=== PATIENT | male | born 1970 | race Caucasian/White ===

== ENCOUNTER 2022-01-08 16:12 | Inpatient (IN) ==
[2022-01-08] MEDS: 0.9 % Sodium Chloride 1,000 ML IVC SCH ×2 (16:58→16:59)
[2022-01-08 17:05] LABS: Bacteria,Urine Few per hpf (None-Few); Bilirubin,Urine Negative (Negative); Blood,Urine Large (Negative); Clarity,Urine Clear (Clear); Color,Urine Yellow (Yellow); Glucose,Urine (UA) 30 mg/dL (Normal); Ketones,Urine 20 mg/dL (Negative); Leukocyte Esterase,Urine Negative (Negative); Mucus,Urine Few per lpf (None-Few); Nitrite,Urine Negative (Negative); Protein,Urine 100 mg/dL (Neg-Trace); RBC,Urine 0-3 per hpf (0-3); Specific Gravity,Urine 1.028 (1.010-1.025); Squamous Epithelial Cell,Urine Few per hpf (None-Few); Urobilinogen,Urine Normal (Normal); WBC,Urine 0-3 per hpf (0-3)
[2022-01-08 17:10] LABS: Basophils % 0.1 %; Hematocrit 49.2 % (37.5-50.1); Hemoglobin 17.5 g/dL (12.9-16.9); Immature Granulocytes % 0.5 % (0-4); Lymphocytes % 6.8 %; Mean Corpuscular HGB Conc 35.6 g/dL (31.6-35.5); Mean Corpuscular Hemoglobin 33.7 pg (28.0-33.3); Mean Corpuscular Volume 94.6 fL (83.0-100.0); Mean Platelet Volume 11.3 fL (9.4-12.4); Monocytes # 0.7 K/mcL (0.0-1.3); Monocytes % 4.5 %; Neutrophils # 13.2 K/mcL (1.6-8.9); Platelet Count 208 K/mcL (140-400); Red Cell Distribution Width 12.5 % (11.5-14.5); Segmented Neutrophils % 88.1 %
[2022-01-08 17:15] LABS: Alanine Aminotransferase 89 Units/L (7-52); Albumin 4.3 g/dL (3.5-5.7); Albumin/Globulin Ratio 1.5 (1.1-2.2); Alkaline Phosphatase 49 Units/L (34-104); Aspartate Amino Transferase 164 Units/L (13-39); BUN/Creatinine Ratio 7 (6-26); Bilirubin,Direct 0.1 mg/dL (0.0-0.2); Bilirubin,Indirect 0.3 mg/dL (0.0-1.0); Bilirubin,Total 0.4 mg/dL (0.3-1.0); Blood Urea Nitrogen 11 mg/dL (6-20); Carbon Dioxide 18 mEq/L (23-29); Chloride 100 mEq/L (98-107); Ethanol < 10 mg/dL (Less than 10); Globulin 2.8 g/dL (2.4-3.5); Glucose 165 mg/dL (70-105); Osmolality,Calculated 287 (280-300); Potassium 4.1 mEq/L (3.5-5.1); Sodium 137 mEq/L (136-145); Total Protein 7.1 g/dL (6.4-8.9); Troponin I < 0.03 ng/mL (< 0.04); eGFR For African Americans > 60 (> 60); eGFR For Non-African Americans 50 (> 60)
[2022-01-08 17:19] LABS: Amphetamine Screen,Urine Negative ng/mL (Cutoff=1000); Barbiturate Screen,Urine Negative ng/mL (Cutoff=200); Benzodiazepines Screen,Urine Negative ng/mL (Cutoff=200); Cannabinoid Screen,Urine Positive ng/mL (Cutoff = 50); Cocaine Screen,Urine Negative ng/mL (Cutoff= 300); Opiate Screen,Urine Negative ng/mL (Cutoff=300); Phencyclidine Screen,Urine Negative ng/mL (Cutoff=25)
[2022-01-08 19:05] LABS: Acetaminophen 13 mcg/mL (10-20); Ethanol < 10 mg/dL (Less than 10); Salicylate 44.7 mg/dL (15.0-30.0)
[2022-01-08 19:29] LABS: VBG HCO3 20 mEq/L (21-27); VBG PCO2 29 mmHg (41-51); VBG PH 7.45 pH Units (7.32-7.42); VBG PO2 151 mmHg (25-50)
[2022-01-08] MEDS ORDERED: Sodium Bicarbonate 150 MEQ in D5% in Water 1,000 ML IVC SCH ×2 (19:30→23:30)
[2022-01-08] MEDS ORDERED: *HR* Dextrose 50 % in Water (Syg) 50 ML SYRINGE IVP ONE (19:57)
[2022-01-08] MEDS ORDERED: Melatonin 3 MG TABLET PO PRN (20:14)
[2022-01-08] MEDS ORDERED: Naloxone 0.4 MG/ML INJ IVP PRN (20:14)
[2022-01-08] MEDS ORDERED: Ondansetron 4 MG/2 ML VIAL IVP PRN (20:14)
[2022-01-08] MEDS ORDERED: Ringers Solution, Lactated 1,000 ML IVC SCH (20:15)
[2022-01-08] MEDS ORDERED: ACETYLCYSTEINE IVC ONE ×2 (20:28→21:30)
[2022-01-08] MEDS ORDERED: WATER IVC ONE ×2 (20:28→21:30)
[2022-01-08] MEDS ORDERED: D5 IVC ONE ×2 (20:28→21:30)
[2022-01-08] MEDS ORDERED: Dextrose Gel 15 GM/37.5 ML TUBE PO PRN ×2 (20:29)
[2022-01-08] MEDS ORDERED: D5% in Water 1,000 ML IVC PRN (20:29)
[2022-01-08] MEDS ORDERED: *HR* Dextrose 50 % in Water (Syg) 50 ML SYRINGE IVP PRN (20:29)
[2022-01-08] MEDS ORDERED: Ringers Solution, Lactated 1,000 ML IVC ONE (20:44)
[2022-01-08] MEDS: *HR* LORazepam 2 MG/ML VIAL IVP ONE (21:00)
[2022-01-08] MEDS ORDERED: Thiamine (B-1) 100 MG in 0.9 % Sodium Chloride 50 ML IVPB STA (21:19)
[2022-01-08] MEDS ORDERED: Saline Nasal Spray 44 ML BOTTLE NS PRN (21:59)
[2022-01-08] MEDS ORDERED: Saliva Stimulant 44.3ml BOTTLE PO PRN (21:59)
[2022-01-08 22:42] LABS: INR 1.5; Prothrombin Time 17.1 Seconds (9.4-12.1)
[2022-01-08 22:45] LABS: Activated Partial Thrombo Time 25.8 Seconds (26.0-36.0)
[2022-01-08 22:59] LABS: Procalcitonin 0.61 ng/mL (0.00-0.15)
[2022-01-08 23:15] LABS: Folate 7.6 ng/mL (3.0-16.0)
[2022-01-08] MEDS: Ipratropium/Albuterol Neb 3 ML IH SCH (23:25)
[2022-01-08] MEDS ORDERED: Potassium Chloride 40 MEQ, Sodium Bicarbonate 150 MEQ in D5% in Water 1,000 ML IVC SCH (23:30)
[2022-01-08 23:35] LABS: ABG Base Excess 2 mEq/L (-2 to 3); ABG HCO3 27 mEq/L (21-27); ABG Oxygen Saturation 100 % (95-98); ABG PCO2 43 mmHg (35-45); ABG PH 7.41 pH Units (7.32-7.45); ABG PO2 207 mmHg (85-104); ABG TCO2 28 mEq/L (20-26)
[2022-01-08 23:37] LABS: Acetaminophen < 10 mcg/mL (10-20); Alanine Aminotransferase 92 Units/L (7-52); Albumin 3.1 g/dL (3.5-5.7); Albumin/Globulin Ratio 1.6 (1.1-2.2); Alkaline Phosphatase 37 Units/L (34-104); Aspartate Amino Transferase 254 Units/L (13-39); Bilirubin,Direct 0.1 mg/dL (0.0-0.2); Bilirubin,Indirect 0.2 mg/dL (0.0-1.0); Bilirubin,Total 0.3 mg/dL (0.3-1.0); Salicylate 41.8 mg/dL (15.0-30.0); Total Protein 5.1 g/dL (6.4-8.9)
[2022-01-08 23:43] LABS: C-Reactive Protein < 5 mg/L (Less than 10)
[2022-01-08 23:57] LABS: Creatine Kinase > 20000 Units/L (30-223)
[2022-01-09] MEDS: Potassium Chloride 40 MEQ, Sodium Bicarbonate 150 MEQ in D5% in Water 1,000 ML IVC SCH ×2 (00:28→09:26)
[2022-01-09] MEDS: Piperacillin/Tazobactam 3.375 GM in 0.9 % Sodium Chloride Mini Bag 100 ML IVPB SCH ×4 (01:03→23:20)
[2022-01-09] MEDS: Pantoprazole 40 MG VIAL IVP SCH ×2 (01:04→07:08)
[2022-01-09 01:22] LABS: VBG HCO3 27 mEq/L (21-27); VBG PCO2 41 mmHg (41-51); VBG PH 7.42 pH Units (7.32-7.42); VBG PO2 77 mmHg (25-50)
[2022-01-09] MEDS ORDERED: ACETYLCYSTEINE IVC ONE ×2 (01:30→20:21)
[2022-01-09] MEDS ORDERED: WATER IVC ONE ×2 (01:30→20:21)
[2022-01-09] MEDS ORDERED: D5 IVC ONE ×2 (01:30→20:21)
[2022-01-09 02:17] LABS: Adenovirus Not Detected (Not Detect); Coronavirus 229E Not Detected (Not Detect); Coronavirus HKU1 Not Detected (Not Detect); Coronavirus NL63 Not Detected (Not Detect); Coronavirus OC43 Not Detected (Not Detect); SARS-CoV-2 Not Detected (Not Detect)
[2022-01-09 02:18] LABS: Bordetella Pertussis Not Detected (Not Detect); Chlamydophila pneumoniae Not Detected (Not Detect); Human Metapneumovirus Not Detected (Not Detect); Human Rhinovirus/Enterovirus Not Detected (Not Detect); Influenza A Subtype 2009 H1 Not Detected (Not Detect); Influenza B Not Detected (Not Detect); Mycoplasma pneumoniae Not Detected (Not Detect); Parainfluenza Virus 1 Not Detected (Not Detect); Parainfluenza Virus 2 Not Detected (Not Detect); Parainfluenza Virus 3 Not Detected (Not Detect); Parainfluenza Virus 4 Not Detected (Not Detect); Respiratory Syncytial Virus Not Detected (Not Detect)
[2022-01-09] MEDS: Ipratropium/Albuterol Neb 3 ML IH SCH (03:45)
[2022-01-09 03:52] LABS: Bilirubin,Urine Negative (Negative); Blood,Urine Large (Negative); Clarity,Urine Turbid (Clear); Color,Urine Light-Orange (Yellow); Glucose,Urine (UA) 200 mg/dL (Normal); Ketones,Urine Trace mg/dL (Negative); Leukocyte Esterase,Urine Moderate (Negative); Nitrite,Urine Negative (Negative); PH,Urine 6.5 pH Units (5.0-8.0); Protein,Urine >=300 mg/dL (Neg-Trace); Specific Gravity,Urine 1.022 (1.010-1.025); Urobilinogen,Urine Normal (Normal)
[2022-01-09 03:55] LABS: Alanine Aminotransferase 106 Units/L (7-52); Albumin 3.3 g/dL (3.5-5.7); Albumin/Globulin Ratio 1.5 (1.1-2.2); Alkaline Phosphatase 38 Units/L (34-104); Aspartate Amino Transferase 261 Units/L (13-39); BUN/Creatinine Ratio 8 (6-26); Bilirubin,Total 0.3 mg/dL (0.3-1.0); Blood Urea Nitrogen 18 mg/dL (6-20); Calcium 7.1 mg/dL (8.6-10.3); Carbon Dioxide 29 mEq/L (23-29); Chloride 100 mEq/L (98-107); Creatine Kinase > 20000 Units/L (30-223); Globulin 2.2 g/dL (2.4-3.5); Glucose 187 mg/dL (70-105); Osmolality,Calculated 295 (280-300); Potassium 3.9 mEq/L (3.5-5.1); Sodium 139 mEq/L (136-145); Total Protein 5.5 g/dL (6.4-8.9); eGFR For African Americans 38 (> 60); eGFR For Non-African Americans 31 (> 60)
[2022-01-09 04:16] LABS: Creatinine,Urine 143 mg/dL; Microalbumin,Urine > 1350 mg/L; Protein/Creatinine Ratio,Urine 4.33 mg/mg (0.00-0.20); Sodium, Urine 58.7 mEq/L
[2022-01-09 04:23] LABS: VBG HCO3 28 mEq/L (21-27); VBG PCO2 42 mmHg (41-51); VBG PH 7.44 pH Units (7.32-7.42); VBG PO2 49 mmHg (25-50)
[2022-01-09 04:29] LABS: Basophils % 0.2 %; Hematocrit 43.2 % (37.5-50.1); Immature Granulocytes % 0.4 % (0-4); Lymphocytes # 1.7 K/mcL (0.6-4.6); Lymphocytes % 13.5 %; Mean Corpuscular HGB Conc 35.2 g/dL (31.6-35.5); Mean Corpuscular Hemoglobin 33.3 pg (28.0-33.3); Mean Corpuscular Volume 94.7 fL (83.0-100.0); Mean Platelet Volume 11.1 fL (9.4-12.4); Monocytes # 1.3 K/mcL (0.0-1.3); Monocytes % 9.8 %; Neutrophils # 9.8 K/mcL (1.6-8.9); Platelet Count 150 K/mcL (140-400); Red Blood Count 4.56 M/mcL (4.19-5.50); Red Cell Distribution Width 12.8 % (11.5-14.5); Segmented Neutrophils % 76.1 %; White Blood Count 12.9 K/mcL (4.3-11.1)
[2022-01-09 04:32] LABS: Hemoglobin 15.2 g/dL (12.9-16.9)
[2022-01-09 04:43] LABS: Albumin 3.1 g/dL (3.5-5.7); Albumin/Globulin Ratio 1.4 (1.1-2.2); Bilirubin,Total 0.3 mg/dL (0.3-1.0); Calcium 6.8 mg/dL (8.6-10.3); Globulin 2.2 g/dL (2.4-3.5); Potassium 4.5 mEq/L (3.5-5.1); Total Protein 5.3 g/dL (6.4-8.9)
[2022-01-09 04:43] LABS: Magnesium 1.8 mg/dL (1.6-2.6); Phosphorous 3.9 mg/dL (2.7-4.5)
[2022-01-09 04:44] LABS: INR 1.7
[2022-01-09 04:46] LABS: Activated Partial Thrombo Time 28.2 Seconds (26.0-36.0)
[2022-01-09] MEDS: Calcium Gluconate 1gm/50mL 1 GM/50 ML BAG IVPB SCH ×2 (05:28→06:26)
[2022-01-09] MEDS: *HR* Heparin 5,000 UNIT/ML VIAL SQ SCH ×2 (05:28→17:06)
[2022-01-09 06:30] LABS: VBG HCO3 25 mEq/L (21-27); VBG PCO2 33 mmHg (41-51); VBG PH 7.49 pH Units (7.32-7.42); VBG PO2 93 mmHg (25-50)
[2022-01-09 06:46] LABS: Albumin/Globulin Ratio 1.6 (1.1-2.2); Bilirubin,Total 0.3 mg/dL (0.3-1.0); Calcium 6.9 mg/dL (8.6-10.3); Globulin 1.9 g/dL (2.4-3.5); Potassium 3.7 mEq/L (3.5-5.1); Total Protein 4.9 g/dL (6.4-8.9)
[2022-01-09] MEDS: 0.9 % Sodium Chloride 1,000 ML IVC SCH ×6 (06:52→07:02)
[2022-01-09 07:34] LABS: VBG HCO3 26 mEq/L (21-27); VBG PCO2 30 mmHg (41-51); VBG PH 7.54 pH Units (7.32-7.42); VBG PO2 128 mmHg (25-50)
[2022-01-09] MEDS ORDERED: Ipratropium/Albuterol Neb 3 ML IH PRN (07:46)
[2022-01-09] MEDS: Nicotine 21 MG PATCH.TD24 TD SCH (07:55)
[2022-01-09 08:18] LABS: Albumin 3.1 g/dL (3.5-5.7); Albumin/Globulin Ratio 1.6 (1.1-2.2); Bilirubin,Total 0.4 mg/dL (0.3-1.0); Calcium 7.4 mg/dL (8.6-10.3); Potassium 4.3 mEq/L (3.5-5.1); Total Protein 5.1 g/dL (6.4-8.9)
[2022-01-09] MEDS ORDERED: Chlorhexidine Rinse 15 ML MOUTHWASH MM SCH (09:00)
[2022-01-09] MEDS ORDERED: Artificial Tears SOLN 15 ML BOTTLE BOTH EYES SCH (09:00)
[2022-01-09] MEDS ORDERED: *HR* LORazepam 2 MG/ML VIAL IVP ONE (10:10)
[2022-01-09 10:13] LABS: Albumin 3.1 g/dL (3.5-5.7); Albumin/Globulin Ratio 1.6 (1.1-2.2); Bilirubin,Total 0.3 mg/dL (0.3-1.0); Calcium 7.4 mg/dL (8.6-10.3); Globulin 1.9 g/dL (2.4-3.5); Potassium 3.5 mEq/L (3.5-5.1); Salicylate 36.8 mg/dL (15.0-30.0)
[2022-01-09] MEDS ORDERED: *HR* LORazepam 2 MG/ML VIAL ONE ×2 (10:13→13:50)
[2022-01-09] MEDS ORDERED: Sodium Bicarbonate 150 MEQ in D5% in Water 1,000 ML IVC SCH (10:15)
[2022-01-09] MEDS: Dexmedetomidine HCl 400 MCG/100 ML MLS IVC SCH ×2 (10:18→13:32)
[2022-01-09] MEDS: niCARdipine 20 MG/200 ML MLS IVC SCH ×5 (10:33→23:17)
[2022-01-09] MEDS ORDERED: *HR* Heparin 10,000 UNIT/10 ML VIAL IV PRN (11:06)
[2022-01-09] MEDS ORDERED: 0.9 % Sodium Chloride 250 ML IVC PRN (11:06)
[2022-01-09] MEDS: Sodium Bicarbonate 100 MEQ in D5% in Water 1,000 ML IVC SCH ×3 (11:15→22:03)
[2022-01-09] MEDS ORDERED: 0.9 % Sodium Chloride 2,000 ML PRIME SCH (11:15)
[2022-01-09 11:19] LABS: Hepatitis B Surface Antibody < 3.10 mIU/mL
[2022-01-09 11:29] LABS: Hepatitis B Surface Antigen Nonreactive (Nonreactive)
[2022-01-09 12:02] LABS: Mixed Venous Blood pCO2 36 mmHg (44-46); Mixed Venous Blood pH 7.47 pH Units (7.34-7.36); Mixed Venous Blood pO2 112 mmHg (35-45)
[2022-01-09 12:08] LABS: Albumin 2.8 g/dL (3.5-5.7); Albumin/Globulin Ratio 1.4 (1.1-2.2); Bilirubin,Total 0.3 mg/dL (0.3-1.0); Calcium 7.1 mg/dL (8.6-10.3); Potassium 3.5 mEq/L (3.5-5.1); Salicylate 37.8 mg/dL (15.0-30.0); Total Protein 4.8 g/dL (6.4-8.9)
[2022-01-09 12:37] LABS: Complement C3 60 mg/dL (87-200)
[2022-01-09] MEDS ORDERED: *HR* Propofol 200 MG/20 ML VIAL IVP ONE (12:47)
[2022-01-09] MEDS ORDERED: Lidocaine -MPF 2% 5 ML VIAL SQ ONE (12:47)
[2022-01-09] MEDS ORDERED: *HR* Rocuronium Bromide 50 MG/5 ML VIAL IVP ONE (12:47)
[2022-01-09] MEDS ORDERED: *HR* Midazolam HCl 2 MG/2 ML VIAL IVP ONE ×2 (12:47→14:20)
[2022-01-09 13:59] LABS: VBG HCO3 29 mEq/L (21-27); VBG PCO2 45 mmHg (41-51); VBG PH 7.42 pH Units (7.32-7.42); VBG PO2 111 mmHg (25-50)
[2022-01-09 14:10] LABS: Albumin 2.9 g/dL (3.5-5.7); Albumin/Globulin Ratio 1.5 (1.1-2.2); Bilirubin,Total 0.3 mg/dL (0.3-1.0); Calcium 7.1 mg/dL (8.6-10.3); Globulin 1.9 g/dL (2.4-3.5); Potassium 3.8 mEq/L (3.5-5.1); Total Protein 4.8 g/dL (6.4-8.9)
[2022-01-09 14:15] LABS: VBG HCO3 26 mEq/L (21-27); VBG PCO2 33 mmHg (41-51); VBG PH 7.51 pH Units (7.32-7.42); VBG PO2 235 mmHg (25-50)
[2022-01-09] MEDS ORDERED: Artificial Tears SOLN 15 ML BOTTLE BOTH EYES PRN (14:18)
[2022-01-09] MEDS: *HR* LORazepam 2 MG/ML VIAL IVP ONE (14:43)
[2022-01-09] MEDS: FentaNYL (PF) 1,000 MCG/100 ML IV.SOLN IVC SCH (14:57)
[2022-01-09 15:25] LABS: ABG Base Excess 4 mEq/L (-2 to 3); ABG HCO3 32 mEq/L (21-27); ABG Oxygen Saturation 95 % (95-98); ABG PCO2 58 mmHg (35-45); ABG PH 7.35 pH Units (7.32-7.45); ABG PO2 81 mmHg (85-104); ABG TCO2 33 mEq/L (20-26); Blood Gas Modality ASSIST CONTROL; Blood Gas VT 480 cc
[2022-01-09] MEDS: Artificial Tears SOLN 15 ML BOTTLE BOTH EYES SCH ×3 (15:34→23:19)
[2022-01-09 16:18] LABS: VBG HCO3 29 mEq/L (21-27); VBG PCO2 46 mmHg (41-51); VBG PO2 102 mmHg (25-50)
[2022-01-09] MEDS ORDERED: Albumin 25% 25gram/100mL 25 GM/100 ML IV.SOLN IVPB ONE (16:37)
[2022-01-09 16:57] LABS: Albumin 2.8 g/dL (3.5-5.7); Albumin/Globulin Ratio 1.6 (1.1-2.2); Bilirubin,Total 0.3 mg/dL (0.3-1.0); Calcium 6.5 mg/dL (8.6-10.3); Globulin 1.8 g/dL (2.4-3.5); Salicylate 31.4 mg/dL (15.0-30.0); Total Protein 4.6 g/dL (6.4-8.9)
[2022-01-09 18:17] LABS: Albumin/Globulin Ratio 1.6 (1.1-2.2); Bilirubin,Total 0.3 mg/dL (0.3-1.0); Calcium 7.7 mg/dL (8.6-10.3); Globulin 1.9 g/dL (2.4-3.5); Salicylate 25.5 mg/dL (15.0-30.0); Total Protein 4.9 g/dL (6.4-8.9)
[2022-01-09] MEDS: Budesonide/Formoterol 160/4.5 1 PUFF INH IH SCH (20:17)
[2022-01-09] MEDS ORDERED: 0.9 % Sodium Chloride 500 ML IVC ONE (20:25)
[2022-01-09] MEDS: Chlorhexidine Rinse 15 ML MOUTHWASH MM SCH (20:42)
[2022-01-09 20:53] LABS: VBG HCO3 30 mEq/L (21-27); VBG PCO2 47 mmHg (41-51); VBG PH 7.42 pH Units (7.32-7.42); VBG PO2 68 mmHg (25-50)
[2022-01-09 21:51] LABS: Salicylate 17.6 mg/dL (15.0-30.0)
[2022-01-09 23:03] LABS: Albumin 2.7 g/dL (3.5-5.7); Albumin/Globulin Ratio 1.8 (1.1-2.2); Bilirubin,Total 0.3 mg/dL (0.3-1.0); Calcium 7.4 mg/dL (8.6-10.3); Globulin 1.5 g/dL (2.4-3.5); Potassium 3.4 mEq/L (3.5-5.1); Salicylate 18.6 mg/dL (15.0-30.0); Total Protein 4.2 g/dL (6.4-8.9)
[2022-01-09 23:37] LABS: Amorphous Sediment,Urine Few per hpf (None-Few); Bacteria,Urine Few per hpf (None-Few); Bilirubin,Urine Negative (Negative); Blood,Urine Large (Negative); Clarity,Urine Turbid (Clear); Color,Urine Yellow (Yellow); Glucose,Urine (UA) 100 mg/dL (Normal); Granular Casts,Urine Few per lpf (None Seen); Ketones,Urine Trace mg/dL (Negative); Leukocyte Esterase,Urine Small (Negative); Mucus,Urine Few per lpf (None-Few); Nitrite,Urine Negative (Negative); Protein,Urine 100 mg/dL (Neg-Trace); RBC,Urine 30-50 per hpf (0-3); Specific Gravity,Urine 1.021 (1.010-1.025); Squamous Epithelial Cell,Urine Few per hpf (None-Few); Transitional Epi Cells,Urine Few per hpf (None-Few); Urobilinogen,Urine Normal (Normal); WBC,Urine 30-50 per hpf (0-3)
[2022-01-10] MEDS: niCARdipine 20 MG/200 ML MLS IVC SCH ×4 (02:13→15:33)
[2022-01-10] MEDS: Artificial Tears SOLN 15 ML BOTTLE BOTH EYES SCH ×5 (03:24→19:12)
[2022-01-10] MEDS: Sodium Bicarbonate 100 MEQ in D5% in Water 1,000 ML IVC SCH (04:16)
[2022-01-10 04:22] LABS: ABG Base Excess 7 mEq/L (-2 to 3); ABG HCO3 31 mEq/L (21-27); ABG Oxygen Saturation 97 % (95-98); ABG PCO2 41 mmHg (35-45); ABG PH 7.49 pH Units (7.32-7.45); ABG PO2 83 mmHg (85-104); ABG TCO2 32 mEq/L (20-26); Blood Gas VT 480 cc
[2022-01-10 04:46] LABS: Basophils % 0.3 %; Eosinophils % 0.3 %; Hematocrit 33.7 % (37.5-50.1); Immature Granulocytes % 0.3 % (0-4); Lymphocytes % 19.6 %; Mean Corpuscular HGB Conc 35.3 g/dL (31.6-35.5); Mean Corpuscular Hemoglobin 33.7 pg (28.0-33.3); Mean Corpuscular Volume 95.5 fL (83.0-100.0); Mean Platelet Volume 11.2 fL (9.4-12.4); Monocytes # 0.8 K/mcL (0.0-1.3); Monocytes % 7.7 %; Neutrophils # 7.2 K/mcL (1.6-8.9); Platelet Count 108 K/mcL (140-400); Red Blood Count 3.53 M/mcL (4.19-5.50); Segmented Neutrophils % 71.8 %
[2022-01-10 04:52] LABS: Hemoglobin 11.9 g/dL (12.9-16.9)
[2022-01-10] MEDS: *HR* Heparin 5,000 UNIT/ML VIAL SQ SCH ×2 (05:06→17:06)
[2022-01-10 05:36] LABS: Albumin 2.7 g/dL (3.5-5.7); Albumin/Globulin Ratio 1.7 (1.1-2.2); Bilirubin,Direct 0.1 mg/dL (0.0-0.2); Bilirubin,Indirect 0.2 mg/dL (0.0-1.0); Bilirubin,Total 0.3 mg/dL (0.3-1.0); Calcium 7.4 mg/dL (8.6-10.3); Globulin 1.6 g/dL (2.4-3.5); Potassium 3.4 mEq/L (3.5-5.1); Total Protein 4.3 g/dL (6.4-8.9)
[2022-01-10] MEDS: Budesonide/Formoterol 160/4.5 1 PUFF INH IH SCH ×3 (07:38→20:35)
[2022-01-10] MEDS: Piperacillin/Tazobactam 3.375 GM in 0.9 % Sodium Chloride Mini Bag 100 ML IVPB SCH ×2 (07:45→20:18)
[2022-01-10] MEDS: Pantoprazole 40 MG VIAL IVP SCH (07:45)
[2022-01-10] MEDS: FentaNYL (PF) 1,000 MCG/100 ML IV.SOLN IVC SCH (07:45)
[2022-01-10] MEDS: Chlorhexidine Rinse 15 ML MOUTHWASH MM SCH ×2 (07:45→19:12)
[2022-01-10] MEDS: Nicotine 21 MG PATCH.TD24 TD SCH (07:45)
[2022-01-10] MEDS ORDERED: Piperacillin/Tazobactam 3.375 GM in 0.9 % Sodium Chloride Mini Bag 100 ML IVPB SCH (08:30)
[2022-01-10 09:47] LABS: Albumin 2.7 g/dL (3.5-5.7); Albumin/Globulin Ratio 1.7 (1.1-2.2); Bilirubin,Direct 0.1 mg/dL (0.0-0.2); Bilirubin,Indirect 0.2 mg/dL (0.0-1.0); Bilirubin,Total 0.3 mg/dL (0.3-1.0); Globulin 1.6 g/dL (2.4-3.5); Total Protein 4.3 g/dL (6.4-8.9)
[2022-01-10] MEDS: 0.9 % Sodium Chloride 1,000 ML IVC SCH (10:38)
[2022-01-10 17:25] LABS: Potassium 3.2 mEq/L (3.5-5.1)
[2022-01-11] MEDS: Artificial Tears SOLN 15 ML BOTTLE BOTH EYES SCH ×3 (00:03→07:21)
[2022-01-11 03:27] LABS: Basophils % 0.1 %; Eosinophils # 0.1 K/mcL (0.0-0.6); Eosinophils % 0.6 %; Hematocrit 33.7 % (37.5-50.1); Hemoglobin 11.6 g/dL (12.9-16.9); Immature Granulocytes % 0.5 % (0-4); Lymphocytes # 1.1 K/mcL (0.6-4.6); Lymphocytes % 13.8 %; Mean Corpuscular HGB Conc 34.4 g/dL (31.6-35.5); Mean Corpuscular Hemoglobin 33.1 pg (28.0-33.3); Mean Corpuscular Volume 96.3 fL (83.0-100.0); Mean Platelet Volume 11.3 fL (9.4-12.4); Monocytes # 0.9 K/mcL (0.0-1.3); Monocytes % 10.3 %; Neutrophils # 6.2 K/mcL (1.6-8.9); Platelet Count 115 K/mcL (140-400); Red Cell Distribution Width 12.7 % (11.5-14.5); Segmented Neutrophils % 74.7 %; White Blood Count 8.3 K/mcL (4.3-11.1)
[2022-01-11 04:06] LABS: Albumin 2.7 g/dL (3.5-5.7); Albumin/Globulin Ratio 1.6 (1.1-2.2); Bilirubin,Direct 0.2 mg/dL (0.0-0.2); Bilirubin,Indirect 0.2 mg/dL (0.0-1.0); Bilirubin,Total 0.4 mg/dL (0.3-1.0); Calcium 7.5 mg/dL (8.6-10.3); Globulin 1.7 g/dL (2.4-3.5); Potassium 4.2 mEq/L (3.5-5.1); Total Protein 4.4 g/dL (6.4-8.9)
[2022-01-11] MEDS: *HR* Heparin 5,000 UNIT/ML VIAL SQ SCH ×2 (06:00→18:04)
[2022-01-11] MEDS: niCARdipine 20 MG/200 ML MLS IVC SCH ×3 (07:10→09:43)
[2022-01-11] MEDS: 0.9 % Sodium Chloride 1,000 ML IVC SCH (07:10)
[2022-01-11] MEDS: FentaNYL (PF) 1,000 MCG/100 ML IV.SOLN IVC SCH (07:10)
[2022-01-11] MEDS: Piperacillin/Tazobactam 3.375 GM in 0.9 % Sodium Chloride Mini Bag 100 ML IVPB SCH ×2 (07:19→20:09)
[2022-01-11] MEDS: Pantoprazole 40 MG VIAL IVP SCH (07:20)
[2022-01-11] MEDS: Chlorhexidine Rinse 15 ML MOUTHWASH MM SCH (07:20)
[2022-01-11] MEDS: Nicotine 21 MG PATCH.TD24 TD SCH (07:21)
[2022-01-11] MEDS: Dexmedetomidine HCl 400 MCG/100 ML MLS IVC SCH (07:22)
[2022-01-11] MEDS: Budesonide/Formoterol 160/4.5 1 PUFF INH IH SCH ×2 (07:40→20:13)
[2022-01-11] MEDS ORDERED: 0.9 % Sodium Chloride 250 ML IVC PRN (09:03)
[2022-01-11] MEDS ORDERED: *HR* Heparin 10,000 UNIT/10 ML VIAL IV PRN ×2 (09:03→10:09)
[2022-01-11] MEDS ORDERED: 0.9 % Sodium Chloride 2,000 ML PRIME SCH ×2 (09:15→10:09)
[2022-01-11] MEDS ORDERED: Ondansetron 4 MG/2 ML VIAL IVP PRN (10:09)
[2022-01-11] MEDS ORDERED: Melatonin 3 MG TABLET PO PRN (10:09)
[2022-01-11] MEDS ORDERED: Saline Nasal Spray 44 ML BOTTLE NS PRN (10:09)
[2022-01-11] MEDS ORDERED: Saliva Stimulant 44.3ml BOTTLE PO PRN (10:09)
[2022-01-11] MEDS ORDERED: D5% in Water 1,000 ML IVC PRN (10:09)
[2022-01-11] MEDS ORDERED: *HR* Dextrose 50 % in Water (Syg) 50 ML SYRINGE IVP PRN (10:09)
[2022-01-11] MEDS ORDERED: Naloxone 0.4 MG/ML INJ IVP PRN (10:09)
[2022-01-11] MEDS ORDERED: niCARdipine 20 MG/200 ML MLS IVC SCH (10:09)
[2022-01-11] MEDS ORDERED: Dextrose Gel 15 GM/37.5 ML TUBE PO PRN ×2 (10:09)
[2022-01-11] MEDS ORDERED: Ipratropium/Albuterol Neb 3 ML IH PRN (10:09)
[2022-01-11] MEDS: Sodium Bicarbonate 100 MEQ in D5% in Water 1,000 ML IVC SCH (19:30)
[2022-01-11] MEDS ORDERED: Chlorhexidine Rinse 15 ML MOUTHWASH MM SCH (21:00)
[2022-01-12] MEDS: *HR* Heparin 5,000 UNIT/ML VIAL SQ SCH ×2 (05:24→18:33)
[2022-01-12 07:02] LABS: Albumin 2.8 g/dL (3.5-5.7); Albumin/Globulin Ratio 1.4 (1.1-2.2); Bilirubin,Direct 0.2 mg/dL (0.0-0.2); Bilirubin,Indirect 0.4 mg/dL (0.0-1.0); Bilirubin,Total 0.6 mg/dL (0.3-1.0); Calcium 8.1 mg/dL (8.6-10.3); Potassium 4.5 mEq/L (3.5-5.1); Total Protein 4.8 g/dL (6.4-8.9)
[2022-01-12] MEDS: Budesonide/Formoterol 160/4.5 1 PUFF INH IH SCH ×2 (07:19→19:58)
[2022-01-12] MEDS ORDERED: 0.9 % Sodium Chloride 250 ML IVC PRN (08:05)
[2022-01-12] MEDS ORDERED: *HR* Heparin 10,000 UNIT/10 ML VIAL IV PRN (08:05)
[2022-01-12] MEDS: Piperacillin/Tazobactam 3.375 GM in 0.9 % Sodium Chloride Mini Bag 100 ML IVPB SCH ×2 (08:05→20:49)
[2022-01-12] MEDS: Nicotine 21 MG PATCH.TD24 TD SCH (08:05)
[2022-01-12] MEDS: Doxycycline 100 MG CAPSULE PO SCH ×2 (08:44→20:47)
[2022-01-12 12:02] LABS: ANA IgG by ELISA NONE DETECTED (None Detected)
[2022-01-12 14:05] LABS: Basophils % 0.2 %; Eosinophils # 0.1 K/mcL (0.0-0.6); Eosinophils % 1.6 %; Hematocrit 32.8 % (37.5-50.1); Immature Granulocytes % 0.3 % (0-4); Lymphocytes # 0.9 K/mcL (0.6-4.6); Lymphocytes % 13.8 %; Mean Corpuscular HGB Conc 33.5 g/dL (31.6-35.5); Mean Corpuscular Hemoglobin 32.3 pg (28.0-33.3); Mean Corpuscular Volume 96.2 fL (83.0-100.0); Mean Platelet Volume 10.3 fL (9.4-12.4); Monocytes # 0.6 K/mcL (0.0-1.3); Monocytes % 9.8 %; Neutrophils # 4.6 K/mcL (1.6-8.9); Platelet Count 136 K/mcL (140-400); Red Blood Count 3.41 M/mcL (4.19-5.50); Red Cell Distribution Width 12.7 % (11.5-14.5); Segmented Neutrophils % 74.3 %; White Blood Count 6.2 K/mcL (4.3-11.1)
[2022-01-13 04:27] LABS: Basophils % 0.1 %; Eosinophils # 0.2 K/mcL (0.0-0.6); Eosinophils % 2.4 %; Hematocrit 31.8 % (37.5-50.1); Hemoglobin 10.7 g/dL (12.9-16.9); Immature Granulocytes % 0.3 % (0-4); Lymphocytes # 1.2 K/mcL (0.6-4.6); Lymphocytes % 16.4 %; Mean Corpuscular HGB Conc 33.6 g/dL (31.6-35.5); Mean Corpuscular Hemoglobin 32.3 pg (28.0-33.3); Mean Corpuscular Volume 96.1 fL (83.0-100.0); Mean Platelet Volume 10.4 fL (9.4-12.4); Monocytes # 0.9 K/mcL (0.0-1.3); Monocytes % 12.4 %; Neutrophils # 4.8 K/mcL (1.6-8.9); Platelet Count 147 K/mcL (140-400); Red Blood Count 3.31 M/mcL (4.19-5.50); Red Cell Distribution Width 12.6 % (11.5-14.5); Segmented Neutrophils % 68.4 %; White Blood Count 7.1 K/mcL (4.3-11.1)
[2022-01-13 05:19] LABS: Albumin 2.8 g/dL (3.5-5.7); Albumin/Globulin Ratio 1.3 (1.1-2.2); Bilirubin,Total 0.9 mg/dL (0.3-1.0); Calcium 8.3 mg/dL (8.6-10.3); Globulin 2.1 g/dL (2.4-3.5); Potassium 4.3 mEq/L (3.5-5.1); Total Protein 4.9 g/dL (6.4-8.9)
[2022-01-13] MEDS: *HR* Heparin 5,000 UNIT/ML VIAL SQ SCH ×2 (05:34→16:28)
[2022-01-13] MEDS: Budesonide/Formoterol 160/4.5 1 PUFF INH IH SCH ×2 (07:59→21:37)
[2022-01-13] MEDS ORDERED: 0.9 % Sodium Chloride 250 ML IVC PRN (08:37)
[2022-01-13] MEDS ORDERED: *HR* Heparin 10,000 UNIT/10 ML VIAL IV PRN (08:37)
[2022-01-13] MEDS: Nicotine 21 MG PATCH.TD24 TD SCH (08:43)
[2022-01-13] MEDS: Piperacillin/Tazobactam 3.375 GM in 0.9 % Sodium Chloride Mini Bag 100 ML IVPB SCH ×2 (08:43→21:00)
[2022-01-13] MEDS: Doxycycline 100 MG CAPSULE PO SCH ×2 (08:43→20:54)
[2022-01-14 03:54] LABS: Basophils % 0.2 %; Eosinophils # 0.2 K/mcL (0.0-0.6); Eosinophils % 2.4 %; Hematocrit 31.6 % (37.5-50.1); Hemoglobin 10.8 g/dL (12.9-16.9); Immature Granulocytes % 0.5 % (0-4); Lymphocytes # 1.2 K/mcL (0.6-4.6); Lymphocytes % 12.7 %; Mean Corpuscular HGB Conc 34.2 g/dL (31.6-35.5); Mean Corpuscular Hemoglobin 32.7 pg (28.0-33.3); Mean Corpuscular Volume 95.8 fL (83.0-100.0); Monocytes # 1.1 K/mcL (0.0-1.3); Monocytes % 11.6 %; Platelet Count 167 K/mcL (140-400); Red Cell Distribution Width 12.4 % (11.5-14.5); Segmented Neutrophils % 72.6 %; White Blood Count 9.6 K/mcL (4.3-11.1)
[2022-01-14 04:26] LABS: Albumin 2.6 g/dL (3.5-5.7); Albumin/Globulin Ratio 1.2 (1.1-2.2); Calcium 8.2 mg/dL (8.6-10.3); Globulin 2.2 g/dL (2.4-3.5); Total Protein 4.8 g/dL (6.4-8.9)
[2022-01-14] MEDS: *HR* Heparin 5,000 UNIT/ML VIAL SQ SCH ×2 (05:35→16:04)
[2022-01-14] MEDS: Budesonide/Formoterol 160/4.5 1 PUFF INH IH SCH ×2 (07:07→19:58)
[2022-01-14] MEDS: Doxycycline 100 MG CAPSULE PO SCH ×2 (09:24→20:15)
[2022-01-14] MEDS: Nicotine 21 MG PATCH.TD24 TD SCH (09:25)
[2022-01-14 14:36] LABS: ANCA IFA Titer <1:20 (<1:20)
[2022-01-15] MEDS: *HR* Heparin 5,000 UNIT/ML VIAL SQ SCH ×2 (05:01→19:42)
[2022-01-15] MEDS: Doxycycline 100 MG CAPSULE PO SCH ×2 (08:02→20:33)
[2022-01-15] MEDS: Nicotine 21 MG PATCH.TD24 TD SCH (08:03)
[2022-01-15] MEDS: Budesonide/Formoterol 160/4.5 1 PUFF INH IH SCH ×2 (08:10→20:03)
[2022-01-15 08:14] LABS: Hematocrit 36.5 % (37.5-50.1); Hemoglobin 12.2 g/dL (12.9-16.9); Mean Corpuscular HGB Conc 33.4 g/dL (31.6-35.5); Mean Corpuscular Hemoglobin 32.5 pg (28.0-33.3); Mean Corpuscular Volume 97.3 fL (83.0-100.0); Platelet Count 216 K/mcL (140-400); Red Blood Count 3.75 M/mcL (4.19-5.50); Red Cell Distribution Width 12.8 % (11.5-14.5); White Blood Count 11.2 K/mcL (4.3-11.1)
[2022-01-15 08:22] LABS: Albumin/Globulin Ratio 1.3 (1.1-2.2); Bilirubin,Total 1.1 mg/dL (0.3-1.0); Calcium 7.4 mg/dL (8.6-10.3); Globulin 2.3 g/dL (2.4-3.5); Potassium 4.3 mEq/L (3.5-5.1); Total Protein 5.3 g/dL (6.4-8.9)
[2022-01-15 08:54] LABS: Eosinophils # 0.3 K/mcL (0.0-0.6); Lymphocytes # 2.7 K/mcL (0.6-4.6); Monocytes # 0.6 K/mcL (0.0-1.3); Neutrophils # 7.6 K/mcL (1.6-8.9)
[2022-01-15 08:55] LABS: Platelet Estimate Normal (Normal)
[2022-01-15 09:41] LABS: ANCA IFA Pattern NONE DETECTED (None Detected); Serine Protease-3 Antibody 0 AU/mL (0-19)
[2022-01-16 01:11] LABS: Basophils % 0.3 %; Eosinophils # 0.3 K/mcL (0.0-0.6); Eosinophils % 3.1 %; Hematocrit 33.4 % (37.5-50.1); Hemoglobin 11.2 g/dL (12.9-16.9); Immature Granulocytes % 0.8 % (0-4); Lymphocytes # 2.2 K/mcL (0.6-4.6); Lymphocytes % 20.4 %; Mean Corpuscular HGB Conc 33.5 g/dL (31.6-35.5); Mean Corpuscular Hemoglobin 32.4 pg (28.0-33.3); Mean Corpuscular Volume 96.5 fL (83.0-100.0); Mean Platelet Volume 10.1 fL (9.4-12.4); Monocytes # 1.3 K/mcL (0.0-1.3); Monocytes % 11.8 %; Neutrophils # 6.8 K/mcL (1.6-8.9); Platelet Count 209 K/mcL (140-400); Red Blood Count 3.46 M/mcL (4.19-5.50); Red Cell Distribution Width 12.8 % (11.5-14.5); Segmented Neutrophils % 63.6 %; White Blood Count 10.7 K/mcL (4.3-11.1)
[2022-01-16 01:31] LABS: Albumin 2.9 g/dL (3.5-5.7); Albumin/Globulin Ratio 1.2 (1.1-2.2); Bilirubin,Total 1.3 mg/dL (0.3-1.0); Calcium 8.5 mg/dL (8.6-10.3); Globulin 2.5 g/dL (2.4-3.5); Potassium 4.5 mEq/L (3.5-5.1); Total Protein 5.4 g/dL (6.4-8.9)
[2022-01-16] MEDS: *HR* Heparin 5,000 UNIT/ML VIAL SQ SCH ×2 (06:11→17:07)
[2022-01-16] MEDS: Budesonide/Formoterol 160/4.5 1 PUFF INH IH SCH ×2 (07:34→20:27)
[2022-01-16] MEDS: Doxycycline 100 MG CAPSULE PO SCH ×2 (08:22→20:24)
[2022-01-16] MEDS: Nicotine 21 MG PATCH.TD24 TD SCH (08:22)
[2022-01-17] MEDS: *HR* Heparin 5,000 UNIT/ML VIAL SQ SCH ×2 (06:06→17:06)
[2022-01-17 06:34] LABS: Albumin 3.1 g/dL (3.5-5.7); Albumin/Globulin Ratio 1.3 (1.1-2.2); Bilirubin,Total 1.3 mg/dL (0.3-1.0); Calcium 8.4 mg/dL (8.6-10.3); Globulin 2.4 g/dL (2.4-3.5); Potassium 4.9 mEq/L (3.5-5.1); Total Protein 5.5 g/dL (6.4-8.9)
[2022-01-17] MEDS: Budesonide/Formoterol 160/4.5 1 PUFF INH IH SCH ×2 (07:45→19:30)
[2022-01-17] MEDS: Nicotine 21 MG PATCH.TD24 TD SCH (08:57)
[2022-01-17] MEDS: Doxycycline 100 MG CAPSULE PO SCH ×2 (08:57→21:06)
[2022-01-18] MEDS: *HR* Heparin 5,000 UNIT/ML VIAL SQ SCH ×2 (05:34→17:33)
[2022-01-18 06:36] LABS: Basophils % 0.3 %; Eosinophils # 0.4 K/mcL (0.0-0.6); Eosinophils % 3.2 %; Hematocrit 37.1 % (37.5-50.1); Hemoglobin 12.3 g/dL (12.9-16.9); Immature Granulocytes % 0.6 % (0-4); Lymphocytes # 2.4 K/mcL (0.6-4.6); Lymphocytes % 18.6 %; Mean Corpuscular HGB Conc 33.2 g/dL (31.6-35.5); Mean Corpuscular Hemoglobin 32.5 pg (28.0-33.3); Mean Corpuscular Volume 97.9 fL (83.0-100.0); Mean Platelet Volume 10.3 fL (9.4-12.4); Monocytes # 1.2 K/mcL (0.0-1.3); Monocytes % 9.6 %; Neutrophils # 8.7 K/mcL (1.6-8.9); Platelet Count 245 K/mcL (140-400); Red Blood Count 3.79 M/mcL (4.19-5.50); Red Cell Distribution Width 13.2 % (11.5-14.5); Segmented Neutrophils % 67.7 %; White Blood Count 12.8 K/mcL (4.3-11.1)
[2022-01-18 06:55] LABS: Albumin 3.6 g/dL (3.5-5.7); Albumin/Globulin Ratio 1.3 (1.1-2.2); Bilirubin,Total 1.4 mg/dL (0.3-1.0); Calcium 8.9 mg/dL (8.6-10.3); Globulin 2.7 g/dL (2.4-3.5); Potassium 5.2 mEq/L (3.5-5.1); Total Protein 6.3 g/dL (6.4-8.9)
[2022-01-18] MEDS: Budesonide/Formoterol 160/4.5 1 PUFF INH IH SCH ×2 (07:50→19:33)
[2022-01-18] MEDS: Nicotine 21 MG PATCH.TD24 TD SCH (09:31)
[2022-01-18] MEDS: Doxycycline 100 MG CAPSULE PO SCH ×2 (09:31→19:55)
[2022-01-19] MEDS: *HR* Heparin 5,000 UNIT/ML VIAL SQ SCH ×2 (05:17→15:18)
[2022-01-19] MEDS: Nicotine 21 MG PATCH.TD24 TD SCH (07:16)
[2022-01-19] MEDS: Doxycycline 100 MG CAPSULE PO SCH ×2 (07:23→21:38)
[2022-01-19 09:46] LABS: Calcium 9.5 mg/dL (8.6-10.3); Potassium 5.6 mEq/L (3.5-5.1)
[2022-01-19] MEDS: Budesonide/Formoterol 160/4.5 1 PUFF INH IH SCH ×2 (10:27→20:06)
[2022-01-19] MEDS ORDERED: Calcium Gluconate 1,000 MG/10 ML VIAL IVP ONE (11:07)
[2022-01-19] MEDS ORDERED: Insulin Human Regular 10 UNIT in 0.9 % Sodium Chloride 10 ML IV ONE (11:07)
[2022-01-19] MEDS ORDERED: *HR* Dextrose 50 % in Water (Syg) 50 ML SYRINGE IVP ONE (11:07)
[2022-01-19] MEDS ORDERED: Calcium Gluconate 1gm/50mL BAG IVPB ONE (11:30)
[2022-01-19] MEDS: SODIUM ZIRCONIUM CYCLOSILICATE 5 GM POWD.PACK PO SCH (13:38)
[2022-01-19 14:14] LABS: Potassium 4.9 mEq/L (3.5-5.1)
[2022-01-19 15:52] LABS: Adenovirus Not Detected (Not Detect); Bordetella Pertussis Not Detected (Not Detect); Chlamydophila pneumoniae Not Detected (Not Detect); Coronavirus 229E Not Detected (Not Detect); Coronavirus HKU1 Not Detected (Not Detect); Coronavirus NL63 Not Detected (Not Detect); Coronavirus OC43 Not Detected (Not Detect); Human Metapneumovirus Not Detected (Not Detect); Human Rhinovirus/Enterovirus Not Detected (Not Detect); Influenza A Subtype 2009 H1 Not Detected (Not Detect); Influenza B Not Detected (Not Detect); Mycoplasma pneumoniae Not Detected (Not Detect); Parainfluenza Virus 1 Not Detected (Not Detect); Parainfluenza Virus 2 Not Detected (Not Detect); Parainfluenza Virus 3 Not Detected (Not Detect); Parainfluenza Virus 4 Not Detected (Not Detect); Respiratory Syncytial Virus Not Detected (Not Detect); SARS-CoV-2 Not Detected (Not Detect)
[2022-01-20] MEDS: *HR* Heparin 5,000 UNIT/ML VIAL SQ SCH (04:50)
[2022-01-20] MEDS: Budesonide/Formoterol 160/4.5 1 PUFF INH IH SCH (07:27)
[2022-01-20] MEDS: Doxycycline 100 MG CAPSULE PO SCH (07:35)
[2022-01-20] MEDS: Nicotine 21 MG PATCH.TD24 TD SCH (07:35)
[2022-01-20] MEDS: SODIUM ZIRCONIUM CYCLOSILICATE 5 GM POWD.PACK PO SCH (07:41)
[2022-01-20 09:40] VITALS: BP 149/96; PULSE 96; TEMP 97.6; O2SAT 98
== END 2022-01-20 11:00 | DRG 720 ==
LOC: SUATTDRO → EMEROOARM 16:12 → 2NNU 20:47 → SUATTDRO 20:47 → 2NNU 22:08 → ICNU 01-09 06:12 → 3BNU 01-11 12:30
PROVIDERS: ADMIT Internal Medicine; ATTEND Family Medicine